=== PATIENT | female | born 1995 | race Caucasian/White ===

== ENCOUNTER 2017-05-05 23:05 | Emergency (ER) | payer OTHER, BC ==
[2017-05-05 23:18] VITALS: BP 130/84; PULSE 115; RESP 18; TEMP 98.8; O2SAT 97
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
== END 2017-05-06 01:06 | disposition home or self-care (01) ==
DX: S09.93XA Unspecified injury of face, initial encounter (principal); V49.50XA Passenger injured in collision with unspecified motor vehicles in traffic accident, initial encounter; Y92.410 Unspecified street and highway as the place of occurrence of the external cause